=== PATIENT | male | born 2000 | race Caucasian/White ===

== ENCOUNTER 2018-10-22 22:37 | Emergency (ER) | payer OTHER ==
[~2018-10-22] VITALS: Ht 175.3 cm; Wt 80.3 kg
[2018-10-22 23:15] VITALS: Ht 175.3 cm; Wt 80.3 kg
[2018-10-22 23:50] LABS: PLATELET COUNT 209 x10^3mcL (130-400)
[2018-10-22 23:53] LABS: BASOPHIL % 0 % (0-2)
[2018-10-23 00:13] LABS: CALCIUM 9.1 mg/dL (8.5-10.1); CARBON DIOXIDE 22.9 mmol/L (21-32); CHLORIDE SERUM 101 mmol/L (98-107); CREATININE SERUM 0.9 mg/dL (0.7-1.3); GFR1 > 60 mL/min; GLUCOSE SERUM 153 mg/dL (74-106); POTASSIUM SERUM 3.3 mmol/L (3.5-5.1); SODIUM SERUM 138 mmol/L (136-145)
[2018-10-23 00:17] LABS: ALBUMIN 4.7 g/dL (3.4-5.0); ALKALINE PHOSPHATASE 89 U/L (46-116); ALT/SGPT 27 U/L (16-63); AST/SGOT 18 U/L (15-37); BILIRUBIN TOTAL 0.7 mg/dL (0.20-1.00); LIPASE 69 IU/L (73-393)
[2018-10-23 00:20] LABS: TOTAL PROTEIN, SERUM 8.6 g/dL (6.4-8.2)
[2018-10-23 01:50] VITALS: BP 127/73
== END 2018-10-23 01:50 | disposition home or self-care (01) ==
LOC: ED 22:37
PROVIDERS: Emergency Medicine
DX: K52.9 Noninfective gastroenteritis and colitis, unspecified (principal)
CPT/HCPCS: J7030; Q0162